=== PATIENT | male | born 1945 | race Caucasian/White ===

== ENCOUNTER 2017-01-11 09:30 | Outpatient (CLI) | payer MEDICARE | END 2017-01-11 09:31 | disposition home or self-care (01) | DX: E11.42 Type 2 diabetes mellitus with diabetic polyneuropathy (principal); I10 Essential (primary) hypertension; G47.33 Obstructive sleep apnea (adult) (pediatric); M54.5 Low back pain ==

== ENCOUNTER 2017-07-01 00:43 | Outpatient (CLI) | payer MEDICARE | END 2017-07-01 00:44 | disposition EMS.NT | LOC: EMS 00:43 | PROVIDERS: ATTEND Surgery | DX: Z03.89 Encounter for observation for other suspected diseases and conditions ruled out (principal); W18.30XA Fall on same level, unspecified, initial encounter; Y92.003 Bedroom of unspecified non-institutional (private) residence as the place of occurrence of the external cause ==

== ENCOUNTER 2017-08-15 10:22 | Outpatient (CLI) | payer MEDICARE ==
[2017-08-15 13:32] LABS: ALBUMIN/GLOBULIN RATIO 0.8 (1.0-2.2); BILIRUBIN,TOTAL 0.4 mg/dL (0.2-1.0); BUN - BLOOD UREA NITROGEN 29 mg/dL (6-20); CALCIUM 8.7 mg/dL (8.5-10.3); CARBON DIOXIDE - CO2 30 mmol/L (21-32); CHLORIDE 97 mmol/L (101-111); CHOL/HDL RATIO 2.6 (<5.0); CHOLESTEROL 143 mg/dL; CREATININE 0.9 mg/dL (0.6-1.2); GFR - MDRD 83 (>89); GLUCOSE 121 mg/dL (70-100); HDL CHOLESTEROL 55 mg/dL; LDL/HDL RATIO 1.2 (<3.6); POTASSIUM 4.5 mmol/L (3.5-5.0); SODIUM 137 mmol/L (135-145); TOTAL PROTEIN 7.7 g/dL (6.7-8.2); TRIGLYCERIDES 111 mg/dL; VLDL CHOLESTEROL 22 mg/dL
[2017-08-15 14:09] LABS: HEMOGLOBIN A1C 0.6 g/dL
== END 2017-08-15 10:23 | disposition home or self-care (01) ==
LOC: LAB.WCP 10:22
PROVIDERS: ATTEND Family Medicine
DX: K59.09 Other constipation (principal); M54.5 Low back pain; E78.5 Hyperlipidemia, unspecified
CPT/HCPCS: 36415; 80053; 80061; 82043; 83036

== ENCOUNTER 2017-08-17 08:00 | Outpatient (CLI) | payer MEDICARE | END 2017-08-17 08:01 | disposition home or self-care (01) | LOC: LAB.WCP 08:00 | PROVIDERS: ATTEND Family Medicine | DX: K59.09 Other constipation (principal); M54.5 Low back pain | CPT/HCPCS: 82043 ==

== ENCOUNTER 2018-03-28 08:00 | Outpatient (CLI) | payer MEDICARE ==
[2018-03-28 18:45] LABS: ALBUMIN 3.3 g/dL (3.2-5.5); ALBUMIN/GLOBULIN RATIO 0.7 (1.0-2.2); BILIRUBIN,TOTAL 0.6 mg/dL (0.2-1.0); CALCIUM 8.6 mg/dL (8.5-10.3); CREATININE 0.8 mg/dL (0.6-1.2); TOTAL PROTEIN 7.9 g/dL (6.7-8.2)
[2018-03-28 18:54] LABS: HB2 TOTAL 13.6 g/dL; HEMOGLOBIN A1C 0.55 g/dL; HEMOGLOBIN A1C % 5.9 % (4.6-6.2)
== END 2018-03-28 08:01 | disposition home or self-care (01) ==
LOC: LAB.WCP 08:00
PROVIDERS: ATTEND Family Medicine
DX: I89.0 Lymphedema, not elsewhere classified (principal); E11.42 Type 2 diabetes mellitus with diabetic polyneuropathy; Z79.891 Long term (current) use of opiate analgesic
CPT/HCPCS: 36415; 80053; 83036

== ENCOUNTER 2018-04-28 07:35 | Outpatient (CLI) | payer MEDICARE | END 2018-04-28 07:36 | disposition critical access hospital (66) | LOC: EMS 07:35 | PROVIDERS: ATTEND Surgery | DX: R53.1 Weakness (principal); R19.8 Other specified symptoms and signs involving the digestive system and abdomen | CPT/HCPCS: A0425; A0429 ==

== ENCOUNTER 2018-04-28 07:57 | Inpatient (IN) | payer MEDICARE ==
[2018-04-28] MEDS ORDERED: SODIUM CHLORIDE 0.9% 1,000 ML IV ONE ×2 (08:05)
--- NOTE | 2018-04-28 08:18 | ED Physician Documentation ---
History of Present Illness - Stated complaint Stated Complaint: WEAKNESS - Chief complaint Chief Complaint: General - History obtained from History obtained from: Patient, Family - History of Present Illness Timing: How many weeks ago (1) Pain level max: 0 Pain level now: 0 Improved by: nothing Worsened by: nothing - Additonal information Additional information: 73 year old male states that he has not eaten for the past week because of constipation. States more weak than usual today. States that he feels very constipated and hasn't taken his relistor this week. No abd pain. No fever. No chills. No vomiting. Review of Systems Ten Systems: 10 systems reviewed and negative Constitutional: denies: Fever, Chills Nose: denies: Rhinorrhea / runny nose, Congestion Respiratory: denies: Cough GI: denies: Nausea, Vomiting, Diarrhea Skin: denies: Rash Musculoskeletal: denies: Neck pain, Back pain Neurologic: denies: Focal weakness, Numbness, Headache PD PAST MEDICAL HISTORY - Past Medical History Cardiovascular: Hypertension Respiratory: Sleep apnea Endocrine/Autoimmune: Type 2 diabetes : Incontinence Musculoskeletal: Osteoarthritis, Chronic back pain - Past Surgical History Past Surgical History: Yes - Present Medications Home Medications: Ambulatory Orders Medication Instructions Recorded Confirmed Aspirin [Aspir 81] 81 mg PO DAILY 05/25/14 04/28/18 Carvedilol [Coreg] 3.125 mg PO BID 05/25/14 04/28/18 Cyclobenzaprine [Flexeril] 10 mg PO QPM 05/25/14 04/28/18 Docusate Sodium [Stool Softener] 1 tab PO DAILY 05/25/14 04/28/18 Hydrochlorothiazide 25 mg PO DAILY 05/25/14 04/28/18 Lisinopril 40 mg PO DAILY 05/25/14 04/28/18 Lovastatin 10 mg PO DAILY 05/25/14 04/28/18 Meloxicam 15 mg PO DAILY 05/25/14 04/28/18 Metformin HCl 250 mg PO DAILY 05/25/14 04/28/18 Morphine Sulfate [Morphine Sulfate 30 mg PO BID 05/25/14 04/28/18 Cr] Multivitamin [Multivitamins] 1 tab PO DAILY 05/25/14 04/28/18 [place]-3 Fatty Acids/Fish Oil 1 tab PO DAILY 05/25/14 04/28/18 [[place] 3 1,000 mg Softgel] Oxycodone HCl/Acetaminophen 1 tab PO QID PRN 05/25/14 04/28/18 [Endocet 5-325 Tablet] Polyethylene Glycol 3350 [Miralax] 17 gm PO BID PRN #1 bottle 05/25/14 04/28/18 Tamsulosin [Flomax] 0.4 mg PO DAILY #14 capsule 05/25/14 04/28/18 Urea 1 applic PO BID 05/25/14 04/28/18 Vitamin E 400 units PO DAILY 05/25/14 04/28/18 raNITIdine [Zantac] 150 mg PO BID 05/25/14 04/28/18 Methylnaltrexone [Relistor] 24 mg SUBQ PRN PRN 04/28/18 04/28/18 - Allergies Allergies/Adverse Reactions: Allergies Allergy/AdvReac Type Severity Reaction Status Date / Time codeine Allergy Mild Itching Verified 01/13/15 09:29 - Social History Does the pt smoke?: No Smoking Status: Former smoker Does the pt drink ETOH?: No - Immunizations Immunizations are current?: Yes PD ED PE NORMAL - Vitals Vital signs reviewed: Yes - General General: Alert and oriented X 3, No acute distress - HEENT HEENT: Moist mucous membranes - Neck Neck: Supple, no meningeal sign - Cardiac Cardiac: RRR - Respiratory Respiratory: No respiratory distress, Clear bilaterally - Abdomen Abdomen: Soft, Other (distended, dull to percussion throughout) - Derm Derm: Warm and dry - Extremities Extremities: Other (diffuse edema, chronic changes. ) - Neuro Neuro: Alert and oriented X 3 - Psych Psych: Normal mood, Normal affect Results - Vitals Vitals: Vital Signs - 24 hr 04/28/18 08:00 Temperature 36.2 C L Heart Rate 94 Respiratory 20 Rate Blood Pressure 129/56 L O2 Saturation 97 Oxygen O2 Source Room air - EKG (time done) 0812 Rate: Rate (enter#) (88) Rhythm: NSR [place]: Normal Intervals: RBBB, Other (LAFB) Ischemia: Normal ST segments Compare to prior EKG: Old EKG unavailable - Labs Labs: Laboratory Tests 04/28/18 04/28/18 04/28/18 08:25 08:25 08:25 WBC 7.4 RBC 4.46 L Hgb 13.0 L Hct 39.2 L MCV 87.9 MCH 29.3 MCHC 33.3 RDW 13.8 Plt Count 170 MPV 6.9 L Neut # (Auto) 6.0 Lymph # (Auto) 0.5 L [place] # (Auto) 0.8 Eos # (Auto) 0.1 Baso # (Auto) 0.1 Absolute Nucleated RBC 0.00 Nucleated RBC % 0.0 Sodium 122 L Potassium 4.3 Chloride 87 L Carbon Dioxide 18 L Anion Gap 17.0 H BUN 62 H Creatinine 4.3 H Estimated GFR (MDRD) 14 L Glucose 94 Glycated Hemoglobin Estim Average Glucose Calcium 7.8 L Total Bilirubin 1.2 H AST 23 ALT 18 Alkaline Phosphatase 81 Total Creatine Kinase Troponin I < 0.04 Total Protein 8.1 Albumin 3.3 Globulin 4.8 H Albumin/Globulin Ratio 0.7 L Lipase 34 04/28/18 04/28/18 08:25 08:25 WBC RBC Hgb Hct MCV MCH MCHC RDW Plt Count MPV Neut # (Auto) Lymph # (Auto) Lander # (Auto) Eos # (Auto) Baso # (Auto) Absolute Nucleated RBC Nucleated RBC % Sodium Potassium Chloride Carbon Dioxide Anion Gap BUN Creatinine Estimated GFR (MDRD) Glucose Glycated Hemoglobin 6.1 Estim Average Glucose 128 H Calcium Total Bilirubin AST ALT Alkaline Phosphatase Total Creatine Kinase 192 Troponin I Total Protein Albumin Globulin Albumin/Globulin Ratio Lipase PD MEDICAL DECISION MAKING - ED course Complexity details: reviewed old records, reviewed results, re-evaluated patient , considered differential, d/w patient, d/w family, d/w recruiting and selection consultant ED course: Patient is a 73-year-old male who presents to the emergency department with acute renal failure and hyponatremia. Also with constipation. Given oral Narcan. Given IV fluids. Will admit the patient for further care. Discussed the case with Dr. Garcia, hospitalist who accepts. This document was made in part using voice recognition software. While efforts are made to proofread this document, sound alike and grammatical errors may occur. - Sepsis Event Vital Signs: Vital Signs - 24 hr 04/28/18 08:00 Temperature 36.2 C L Heart Rate 94 Respiratory 20 Rate Blood Pressure 129/56 L O2 Saturation 97 Oxygen O2 Source Room air Departure - Departure Disposition: [facility] DC/Xfer Clinical Impression: Hyponatremia Acute renal failure Qualifiers: Acute renal failure type: unspecified Qualified Code(s): N17.9 - Acute kidney failure, unspecified Constipated Qualifiers: Constipation type: unspecified constipation type Qualified Code(s): K59.00 - Constipation, unspecified Condition: Stable Discharge Date/Time: 04/28/18 10:36
[2018-04-28] MEDS ORDERED: NALOXONE 0.4 MG/ML VIAL IVP STA (08:24)
[2018-04-28 08:33] LABS: BASOPHILS # (AUTO) 0.1 10^3/uL (0.0-0.1); BASOPHILS % (AUTO) 0.8 %; EOSINOPHILS # (AUTO) 0.1 10^3/uL (0.0-0.7); EOSINOPHILS % (AUTO) 0.9 %; LYMPHOCYTES # (AUTO) 0.5 10^3/uL (1.5-3.5); LYMPHOCYTES % (AUTO) 6.4 %; MEAN CORPUSCULAR HEMOGLOBIN 29.3 pg (27.0-31.0); MEAN CORPUSCULAR HGB CONC 33.3 g/dL (32.0-36.0); MEAN CORPUSCULAR VOLUME 87.9 fL (80.0-94.0); MEAN PLATELET VOLUME 6.9 fL (7.4-11.4); MONOCYTES # (AUTO) 0.8 10^3/uL (0.0-1.0); MONOCYTES % (AUTO) 10.5 %; NEUTROPHILS % (AUTO) 81.4 %; PLT - PLATELET COUNT 170 10^3/uL (130-450); RED BLOOD COUNT 4.46 10^6/uL (4.70-6.10); RED CELL DISTRIBUTION WIDTH 13.8 % (12.0-15.0); WHITE BLOOD COUNT 7.4 x10^3/uL (4.8-10.8)
[2018-04-28 08:46] LABS: ALBUMIN 3.3 g/dL (3.2-5.5); ALBUMIN/GLOBULIN RATIO 0.7 (1.0-2.2); BILIRUBIN,TOTAL 1.2 mg/dL (0.2-1.0); CALCIUM 7.8 mg/dL (8.5-10.3); CREATININE 4.3 mg/dL (0.6-1.2); TOTAL PROTEIN 8.1 g/dL (6.7-8.2)
[2018-04-28] MEDS ORDERED: NALOXONE 0.4 MG/1 ML 10 ML MDV IVP STA (08:53)
[2018-04-28] MEDS ORDERED: ONDANSETRON 4 MG/2 ML VIAL IVP PRN ×2 (09:22→10:47)
[2018-04-28] MEDS ORDERED: ONDANSETRON ODT 4 MG TABLET TL PRN (09:22)
[2018-04-28] MEDS ORDERED: SODIUM CHLORIDE FLUSH 0.9% 10 ML SYRINGE IVP PRN ×2 (09:22→10:47)
[2018-04-28] MEDS ORDERED: oxyCODONE 5 MG TABLET PO PRN (09:22)
[2018-04-28] MEDS ORDERED: ACETAMINOPHEN 325 MG TABLET PO PRN ×2 (09:22→10:47)
[2018-04-28] MEDS ORDERED: SODIUM CHLORIDE 0.9% 1,000 ML IV SCH (10:00)
[2018-04-28] MEDS ORDERED: ENOXAPARIN 40 MG/0.4 ML SYRINGE SUBQ SCH (10:00)
[2018-04-28] MEDS ORDERED: SODIUM CHLORIDE FLUSH 0.9% 10 ML SYRINGE ONE (10:50)
--- NOTE | 2018-04-28 10:51 | HISTORY & PHYSICAL EXAMINATION ---
Chief Complaint - Chief Complaint Chief Complaint: dizziness and weakness History of Present Illness - Admitted From Admitted From:: ER - History Obtained From History obtained from: pt - History of Present Illness HPI Comment/Other: Mr. Abrams is a 73-year-old male with a PMH significant for mortality obese, chronic back pain, chronic opioid-induced constipation, chronic bilateral low extremities of psoriasis, HTN, DM2, sleep apnea, osteroarthritis, who present ER complaints of dizziness and weakness. Pt states that he has not eaten much for the past week because of constipation. He state he usually drink 2 liters of water but for last week, he only drunk one liter per day because he think he is constipated, and should not eat and drink much even at summer. He States he is more dizziness and more weak than usual today. He denies abdominal pain, nausea, vomiting, diarrhea. He report he has chronic psoriasis and follows up with his dean. He denies chest pain, shortness of breath, fever, chill , cough. His creatinine is 4.3 today from 0.8 one month ago. History - Past Medical History Cardiovascular: reports: Hypertension Respiratory: reports: Sleep apnea Endocrine/Autoimmune: reports: Type 2 diabetes : reports: Incontinence Musculoskeletal: reports: Osteoarthritis, Chronic back pain MRSA Hx?: No - Family & Social History Family History: Mother: (father from accident fall), Cancer, Father: Family History Comment/Other: he is living alone at [facility]. He has two daughters, and he had two brother and sisters. Living arrangement: At home Living Situation: Alone Social History Notes: pt denies cigarette smoking, alcohol and drug abuse. - POLST POLST Status: Full Code Meds/Allgy - Home Medications Home Medications: Ambulatory Orders Medication Instructions Recorded Confirmed Aspirin [Aspir 81] 81 mg PO DAILY 05/25/14 04/28/18 Carvedilol [Coreg] 3.125 mg PO BID 05/25/14 04/28/18 Cyclobenzaprine [Flexeril] 10 mg PO QPM 05/25/14 04/28/18 Docusate Sodium [Stool Softener] 1 tab PO DAILY 05/25/14 04/28/18 Hydrochlorothiazide 25 mg PO DAILY 05/25/14 04/28/18 Lisinopril 40 mg PO DAILY 05/25/14 04/28/18 Lovastatin 10 mg PO DAILY 05/25/14 04/28/18 Meloxicam 15 mg PO DAILY 05/25/14 04/28/18 Metformin HCl 250 mg PO DAILY 05/25/14 04/28/18 Morphine Sulfate [Morphine Sulfate 30 mg PO BID 05/25/14 04/28/18 Cr] Multivitamin [Multivitamins] 1 tab PO DAILY 05/25/14 04/28/18 [place]-3 Fatty Acids/Fish Oil 1 tab PO DAILY 05/25/14 04/28/18 [[place] 3 1,000 mg Softgel] Oxycodone HCl/Acetaminophen 1 tab PO QID PRN 05/25/14 04/28/18 [Endocet 5-325 Tablet] Polyethylene Glycol 3350 [Miralax] 17 gm PO BID PRN #1 bottle 05/25/14 04/28/18 Tamsulosin [Flomax] 0.4 mg PO DAILY #14 capsule 05/25/14 04/28/18 Urea 1 applic PO BID 05/25/14 04/28/18 Vitamin E 400 units PO DAILY 05/25/14 04/28/18 raNITIdine [Zantac] 150 mg PO BID 05/25/14 04/28/18 Methylnaltrexone [Relistor] 24 mg SUBQ PRN PRN 04/28/18 04/28/18 - Allergies Allergies/Adverse Reactions: Allergies Allergy/AdvReac Type Severity Reaction Status Date / Time codeine Allergy Mild Itching Verified 01/13/15 09:29 Review of Systems - Constitutional Constitutional: reports: Weakness. denies: Fatigue, Fever, Chills, Malaise, Poor appetite, Diaphoresis, Night sweats - Eyes Eyes: denies: Pain, Irritation, Amaurosis, Blurred vision, Spots in vision, Field loss, Vision loss, Dipolpia - Ears, Nose & Throat Ears, Nose & Throat: denies: Ear pain, Hearing loss, Hearing aids, Tinnitus, Vertigo, Nasal pain, Nasal discharge, Nosebleeds, Nasal obstruction, Nasal congestion, Postnasal drainage, Dentures, Sore throat, Hoarseness, Mouth lesions , Bleeding gums, Dental decay - Cardiovascular Cariovascular: denies: Irregular heart rate, Palpitations, Chest pain, Edema, Lightheadedness, Syncope, Exertional dyspnea, Decr. exercise tolerance - Respiratory Respiratory: denies: Cough, Sputum production, Wheezing, Snoring, Hemoptysis, Orthopnea, SOB at rest - Gastrointestinal Gastrointestinal: denies: Abdominal pain, Abdominal distention, Constipation, Diarrhea, Change in bowel habits, Rectal bleeding, Black stools, Bloody stools, Nausea, Vomiting, Bile emesis, Robert blood emesis, Coffee grounds emesis, Reflux /heartburn - Genitourinary Genitourinary: denies: Dysuria, Frequency, Urgency, Hematuria, Incontinence, Flank pain, Nocturia, Urethral discharge - Musculoskeletal Musculoskeletal: reports: Back pain. denies: Muscle pain, Muscle aches, Stiffness, Limited range of motion, Muscle weakness, Gout, Joint pain - Integumentary Integumentary: reports: Rash, Lesions. denies: Pruritis, Dryness, Lumps, Acne, Pigment changes, Nail changes - Neurological Neurological: reports: General weakness. denies: Focal weakness, Headache, Dizziness, Numbness, Memory problems, Pre-existing deficit, Abnormal gait, Seizures, Incoordination, Slurred speech - Psychiatric Psychiatric: denies: Depression, Anxiety, Suicidal, Delusions, Hallucinations, Homicidal - Endocrine Endocrine: denies: Polyuria, Polydypsia, Polyphagia, Intolerance to cold - Hematologic/Lymphatic Hematologic/Lymphatic: denies: Anemia, Bruising, Petechiae, Blood clots, Lymphadenopathy, Bleeding tendencies Exam - Vital Signs Reviewed Vital Signs: Yes Vital Signs: Vital Signs x48h Temp Pulse Resp BP Pulse Ox 04/28/18 10:04 103 H 20 134/89 H 98 04/28/18 08:00 36.2 C L 94 20 129/56 L 97 - Physical Exam General Appearance: positive: No acute distress, Alert. negative: Lethargic Eyes Bilateral: positive: Normal inspection, PERRL, No lid inflammation, Conjunctivae nml ENT: positive: ENT inspection nml, Pharynx nml, No signs of dehydration. negative: Purulent nasal drainage, Pharyngeal erythema, Oral lesions Neck: positive: Nml inspection, Thyroid nml, No JVD, Trachea midline. negative : Thyromegaly, Lymphadenopathy (R), Lymphadenopathy (L), Stiff neck, Carotid bruit, Swelling/bruising, Tracheal deviation Respiratory: positive: Chest non-tender, No respiratory distress, Breath sounds nml. negative: Wheezes, Rales, Rhonchi Cardiovascular: positive: Regular rate & rhythm, Systolic murmur, Diastolic murmur. negative: Irregularly irregular, Extrasystoles, Tachycardia, Bradycardia, JVD present Peripheral Pulses: positive: 2+ Abdomen: positive: Non-tender, No organomegaly, No distention, Other (reduced bowel sounds). negative: Tenderness, Guarding, Rebound Back: positive: Nml inspection. negative: CVA tenderness (R), CVA tenderness (L ) Skin: positive: Warm, Dry, Skin rash. negative: Cyanosis, Diaphoresis, Pallor Extremities: positive: Full ROM. negative: Calf tenderness, Joint swelling, Rosie's sign/cords Neurologic/Psychiatric: positive: Oriented x3, Sensation nml, Mood/affect nml. negative: Weakness, Sensory loss, Facial droop, Slurred/abnml speech, Depressed mood/affect Conclusion/Plan - Problem List (1) Acute renal failure Conclusion/Plan: pt state he significantly reduced his drinking of water and diet because he continue to have constipation. Pt's creatinine 0.8 one month ago, now it 4.3 IVF of NS 100, daily lab monitor renal function hold nephrotoxin Qualifiers: Acute renal failure type: unspecified Qualified Code(s): N17.9 - Acute kidney failure, unspecified (2) Constipation Conclusion/Plan: pt has chronic constipation problem, seems caused by chronic opioids usage for his chronic back pain. pt denies abdominal pain, N/V/D start with bowel protocol Mag citrate as needed Xray of abdomen Qualifiers: Constipation type: unspecified constipation type Qualified Code(s): K59.00 - Constipation, unspecified (3) Diabetes Conclusion/Plan: pt took Metformin at home. Hold Metformin for renal failure start slide scale, ACHS hypoglycemia protocol (4) Hyponatremia Conclusion/Plan: it seem from hypovolum and hyponatremia. Na 122 today Hold HCTZ start IVF with NS at 100 cc/h daily lab monitor (5) HTN (hypertension) Conclusion/Plan: stable, start home meds Coreg Hold HCTZ and Lisinopril PRN colinidine (6) Chronic back pain Conclusion/Plan: pt has opioid-caused constipation hold pain meds now until constipation resolved. (7) Hx of psoriasis Conclusion/Plan: hold the home meds Methelnelthrxone now for renal failure continue follow up pt's dean (8) Murmur, heart Conclusion/Plan: pt present bilateral systolic and diastolic murmur ECHO, will follow up on tele and vital monitor (9) DVT prophylaxis Conclusion/Plan: heparin, no SCD (10) Full code status Conclusion/Plan: pt request full code - Lab Results Fish Bones: 04/28/18 08:25 04/28/18 08:25 Core Measures - Anticipated LOS I expect patient to be DC'd or transferred within 96 hours.: Yes - DVT/VTE - Prophylaxis VTE/DVT Device ordered at admit?: No Not Ordered - Medical Reason: Contraindicated VTE/DVT Prophylaxis med ordered at admit?: Yes
[2018-04-28 11:16] LABS: HB2 TOTAL 14.1 g/dL; HEMOGLOBIN A1C 0.61 g/dL; HEMOGLOBIN A1C % 6.1 % (4.6-6.2)
[2018-04-28] MEDS: CARVEDILOL 3.125 MG TABLET PO SCH ×2 (11:26→20:37)
[2018-04-28] MEDS: ATORVASTATIN 10 MG TABLET PO SCH ×2 (11:26→20:40)
[2018-04-28] MEDS: SODIUM CHLORIDE 0.9% 1,000 ML IV SCH ×2 (11:26→20:50)
[2018-04-28] MEDS: INSULIN ASPART 300 UNIT/3 ML PEN SUBQ SCH ×3 (11:59→20:41)
[2018-04-28] MEDS ORDERED: ENOXAPARIN 30 MG/0.3 ML SYRINGE SUBQ SCH (12:00)
[2018-04-28] MEDS ORDERED: MAGNESIUM CITRATE 296 ML BOTTLE PO PRN (15:25)
[2018-04-28] MEDS ORDERED: cloNIDine 0.1 MG TABLET PO PRN ×2 (16:14→16:16)
[2018-04-28] MEDS: HEPARIN 5,000 UNIT/ML VIAL SUBQ SCH ×2 (16:41→22:27)
[2018-04-28] MEDS: SENNA 8.6 MG TABLET PO SCH (16:42)
[2018-04-28] MEDS: SODIUM CHLORIDE FLUSH 0.9% 10 ML SYRINGE IVP SCH (16:45)
[2018-04-28] MEDS ORDERED: MAGNESIUM HYDROXIDE 2,400 MG/30 ML UDC PO ONE (17:00)
[2018-04-28] MEDS ORDERED: SODIUM CHLORIDE FLUSH 0.9% 10 ML SYRINGE IVP SCH (17:00)
--- NOTE | 2018-04-28 18:13 | Ultrasound Report ---
Procedure Date: 04/28/2018 Accession Number: [id number] / [id number] Procedure: US - Retroperitoneal CPT Code: FULL RESULT: EXAM: RENAL ULTRASOUND EXAM DATE: 04/28/2018 05:26 PM. CLINICAL HISTORY: New acute renal failure. COMPARISON: 01/14/2015. TECHNIQUE: Real-time scanning was performed with static images obtained. FINDINGS: Right Kidney: 13.3 x 7.2 x 7.7 cm. Normal echotexture with no stones, contour-deforming masses, or hydronephrosis. Left Kidney: 13.0 x 7.7 x 6.4 cm. Normal echotexture with no stones, contour-deforming masses, or hydronephrosis. Bladder: Neither ureteral jet is seen. The prevoid bladder volume was 1478 mL. The postvoid bladder volume was not obtained. Patient was unable to void. Significant limitations due to body habitus and limited mobility. Other: Echogenic liver parenchyma compatible with fatty infiltration. Apparent large gallstone. IMPRESSION: 1. No renal mass, stones or hydronephrosis. 2. Significant bladder volume of 1478 mL. Patient was unable to void. Neither ureteral jets are seen. 3. Significant limitations due to body habitus and suboptimal mobility. 4. Fatty liver. Apparent gallstones. RADIA
--- NOTE | 2018-04-28 20:36 | XRAY Report ---
Procedure Date: 04/28/2018 Accession Number: [id number] / [id number] Procedure: XR - Abdomen 1 View X-Ray CPT Code: 89198 FULL RESULT: EXAM: ABDOMEN RADIOGRAPHY EXAM DATE: 04/28/2018 08:00 PM. CLINICAL HISTORY: Reduced bowel sound. Constipation. Any SBO? COMPARISON: None. TECHNIQUE: 1 view. FINDINGS: Bowel Gas Pattern: Within normal limits. No dilated loops. Other: Catheter projects over the pelvis. IMPRESSION: Nonobstructive bowel gas pattern. RADIA
[2018-04-28] MEDS: MORPHINE ER 15 MG TABLET PO SCH (20:40)
[2018-04-28] MEDS: ALPHA HYDROXY ACIDS TOP SCH (20:41)
[2018-04-28] MEDS: UREA TOP SCH (20:41)
[2018-04-28] MEDS ORDERED: CYCLOBENZAPRINE 10 MG TABLET PO SCH ×2 (21:00)
[2018-04-28] MEDS ORDERED: MORPHINE SULFATE 30 MG PO SCH (21:00)
[2018-04-28] MEDS ORDERED: CARVEDILOL 3.125 MG TABLET PO SCH ×3 (21:00)
[2018-04-28] MEDS ORDERED: UREA PO SCH (21:00)
[2018-04-28 22:35] LABS: MUDS CUTOFF CONCENTRATIONS CUTOFF CONC BELOW:
[2018-04-28 22:36] LABS: AMPHETAMINE SCREEN,URINE NEGATIVE (NEGATIVE); BENZODIAZEPINES SCREEN, URINE NEGATIVE (NEGATIVE); COCAINE SCREEN URINE NEGATIVE (NEGATIVE); METHADONE SCREEN, URINE NEGATIVE (NEGATIVE); METHAMPHETAMINES SCREEN, URINE NEGATIVE (NEGATIVE); OPIATE SCREEN, URINE POSITIVE (NEGATIVE); OXYCODONE SCREEN, URINE POSITIVE (NEGATIVE); PROPOXYPHENE SCREEN, URINE NEGATIVE (NEGATIVE); TRICYCLIC ANTIDEPRESSANT,URINE NEGATIVE (NEGATIVE)
[2018-04-29] MEDS: SENNA 8.6 MG TABLET PO SCH ×3 (01:13→11:01)
[2018-04-29] MEDS: SODIUM CHLORIDE FLUSH 0.9% 10 ML SYRINGE IVP SCH ×4 (01:15→18:21)
[2018-04-29] MEDS: oxyCODONE 5 MG TABLET PO PRN ×3 (05:40→18:21)
[2018-04-29 06:14] LABS: BASOPHILS % (AUTO) 0.3 %; EOSINOPHILS # (AUTO) 0.1 10^3/uL (0.0-0.7); EOSINOPHILS % (AUTO) 0.9 %; HGB - HEMOGLOBIN 12.1 g/dL (14.0-18.0); LYMPHOCYTES # (AUTO) 0.4 10^3/uL (1.5-3.5); LYMPHOCYTES % (AUTO) 7.1 %; MEAN CORPUSCULAR HEMOGLOBIN 29.9 pg (27.0-31.0); MEAN CORPUSCULAR HGB CONC 33.7 g/dL (32.0-36.0); MEAN CORPUSCULAR VOLUME 88.6 fL (80.0-94.0); MEAN PLATELET VOLUME 7.4 fL (7.4-11.4); MONOCYTES # (AUTO) 0.8 10^3/uL (0.0-1.0); MONOCYTES % (AUTO) 12.3 %; NEUTROPHILS % (AUTO) 79.4 %; PLT - PLATELET COUNT 152 10^3/uL (130-450); RED BLOOD COUNT 4.05 10^6/uL (4.70-6.10); RED CELL DISTRIBUTION WIDTH 14.1 % (12.0-15.0); WHITE BLOOD COUNT 6.3 x10^3/uL (4.8-10.8)
[2018-04-29 06:24] LABS: ALBUMIN 2.9 g/dL (3.2-5.5); ALBUMIN/GLOBULIN RATIO 0.8 (1.0-2.2); CALCIUM 7.5 mg/dL (8.5-10.3); CREATININE 4.7 mg/dL (0.6-1.2); MAGNESIUM 3.2 mg/dL (1.7-2.8); PHOSPHORUS 8.3 mg/dL (2.5-4.6); TOTAL PROTEIN 6.7 g/dL (6.7-8.2)
[2018-04-29] MEDS: SODIUM CHLORIDE 0.9% 1,000 ML IV SCH ×2 (06:54→16:50)
[2018-04-29] MEDS ORDERED: CALCIUM CARBONATE CHEW 500 MG TABLET PO PRN (07:35)
[2018-04-29] MEDS: INSULIN ASPART 300 UNIT/3 ML PEN SUBQ SCH ×3 (07:59→16:50)
[2018-04-29] MEDS ORDERED: MULTIVITAMIN TABLET PO SCH (08:00)
[2018-04-29] MEDS ORDERED: FAMOTIDINE 20 MG TABLET PO SCH (09:00)
[2018-04-29] MEDS ORDERED: POLYETHYLENE GLYCOL 3350 17 GM PACKET PO SCH ×2 (09:00)
[2018-04-29] MEDS ORDERED: LOVASTATIN 10 MG PO SCH ×2 (09:00)
[2018-04-29] MEDS ORDERED: ASPIRIN CHEW 81 MG TABLET PO SCH (09:00)
[2018-04-29] MEDS ORDERED: NON FORMULARY MED (Multivitamin [Multivitamins] 1 TAB) PO SCH ×2 (09:00)
[2018-04-29] MEDS ORDERED: LACTULOSE 10 GM /15 ML UDC PO SCH ×2 (09:00)
[2018-04-29] MEDS ORDERED: TAMSULOSIN 0.4 MG CAPSULE PO SCH ×3 (09:00)
[2018-04-29] MEDS: ONDANSETRON ODT 4 MG TABLET TL PRN ×2 (09:03→14:44)
[2018-04-29] MEDS: CARVEDILOL 3.125 MG TABLET PO SCH (09:04)
[2018-04-29] MEDS: MORPHINE ER 15 MG TABLET PO SCH (09:04)
[2018-04-29] MEDS: HEPARIN 5,000 UNIT/ML VIAL SUBQ SCH (09:05)
[2018-04-29] MEDS: UREA TOP SCH (09:16)
[2018-04-29] MEDS: ALPHA HYDROXY ACIDS TOP SCH (09:16)
--- NOTE | 2018-04-29 15:38 | DISCHARGE SUMMARY ---
Discharge Summary Discharge Date: 04/29/18 Discharging Provider: BOLAÑOS Primary Care Provider: Dr. Hamilton Condition at Discharge: Poor Discharge Disposition: 02 Transfer Acute Care Hosp [facility] - DIAGNOSES Admission Diagnoses: (1) Acute renal failure (2) Constipation (3) Diabetes (4) Hyponatremia (5) HTN (hypertension) (6) Chronic back pain (7) Hx of psoriasis (8) Murmur, heart Discharge Diagnoses with Status of Each Condition: (1) Acute renal failure pt does not response to hydration treatment. I called Dr. Blackwell, fire sprinkler service technician, he recommend to transfer pt to [facility] for advance care. I called [facility]. The hospitalist team Dr. Kenney accepted pt, Dr. Blackwell will consult to pt. (2) chronic Constipation KUB reveals no SBO, pt did not eat much, no bowel movement (3) Diabetes stable (4) Hyponatremia improved, Na 126 today (5) HTN (hypertension) stable (6) Chronic back pain better (7) Hx of psoriasis stable (8) Murmur, heart ECHO reveals EF>75% - HPI History of Present Illness: Mr. Abrams is a 73-year-old male with a PMH significant for mortality obese, chronic back pain, chronic opioid-induced constipation, chronic bilateral low extremities of psoriasis, HTN, DM2, sleep apnea, osteroarthritis, who present ER complaints of dizziness and weakness. Pt states that he has not eaten much for the past week because of constipation. He state he usually drink 2 liters of water but for last week, he only drunk one liter per day because he think he is constipated, and should not eat and drink much even at summer. He States he is more dizziness and more weak than usual today. He denies abdominal pain, nausea, vomiting, diarrhea. He report he has chronic psoriasis and follows up with his parts counterperson. He denies chest pain, shortness of breath, fever, chill , cough. His creatinine is 4.3 today from 0.8 one month ago. - ALLERGIES Allergies/Adverse Reactions: Allergies Allergy/AdvReac Type Severity Reaction Status Date / Time codeine Allergy Mild Itching Verified 01/13/15 09:29 - MEDICATIONS Home Medications: Ambulatory Orders Medication Instructions Recorded Confirmed Aspirin [Aspir 81] 81 mg PO DAILY 05/25/14 04/28/18 Carvedilol [Coreg] 3.125 mg PO BID 05/25/14 04/28/18 Cyclobenzaprine [Flexeril] 10 mg PO QPM 05/25/14 04/28/18 Docusate Sodium [Stool Softener] 1 tab PO DAILY 05/25/14 04/28/18 Hydrochlorothiazide 25 mg PO DAILY 05/25/14 04/28/18 Lisinopril 40 mg PO DAILY 05/25/14 04/28/18 Lovastatin 10 mg PO DAILY 05/25/14 04/28/18 Meloxicam 15 mg PO DAILY 05/25/14 04/28/18 Metformin HCl 250 mg PO DAILY 05/25/14 04/28/18 Morphine Sulfate [Morphine Sulfate 30 mg PO BID 05/25/14 04/28/18 Cr] Multivitamin [Multivitamins] 1 tab PO DAILY 05/25/14 04/28/18 [place]-3 Fatty Acids/Fish Oil 1 tab PO DAILY 05/25/14 04/28/18 [[place] 3 1,000 mg Softgel] Oxycodone HCl/Acetaminophen 1 tab PO QID PRN 05/25/14 04/28/18 [Endocet 5-325 Tablet] Polyethylene Glycol 3350 [Miralax] 17 gm PO BID PRN #1 bottle 05/25/14 04/28/18 Tamsulosin [Flomax] 0.4 mg PO DAILY #14 capsule 05/25/14 04/28/18 Urea 1 applic PO BID 05/25/14 04/28/18 Vitamin E 400 units PO DAILY 05/25/14 04/28/18 raNITIdine [Zantac] 150 mg PO BID 05/25/14 04/28/18 Methylnaltrexone [Relistor] 24 mg SUBQ PRN PRN 04/28/18 04/28/18 - PHYSICAL EXAM AT DISCHARGE General Appearance: positive: No acute distress, Alert. negative: Lethargic Eyes Bilateral: positive: Normal inspection, PERRL, No lid inflammation, Conjunctivae nml ENT: positive: ENT inspection nml, Pharynx nml, No signs of dehydration. negative: Purulent nasal drainage, Pharyngeal erythema, Oral lesions Neck: positive: Nml inspection, Thyroid nml, No JVD, Trachea midline. negative : Thyromegaly, Lymphadenopathy (R), Lymphadenopathy (L), Stiff neck, Swelling/ bruising, Tracheal deviation Respiratory: positive: Chest non-tender, No respiratory distress, Breath sounds nml. negative: Wheezes, Rales, Rhonchi Cardiovascular: positive: Regular rate & rhythm, No murmur, No gallop. negative : Irregularly irregular, Extrasystoles, Tachycardia, Bradycardia, JVD present, Systolic murmur, Diastolic murmur Peripheral Pulses: positive: 2+ Abdomen: positive: Non-tender, No organomegaly, Nml bowel sounds, No distention. negative: Tenderness, Guarding, Rebound Back: positive: Nml inspection. negative: CVA tenderness (R), CVA tenderness (L ) Skin: positive: Warm, Dry. negative: Cyanosis, Diaphoresis, Pallor Extremities: positive: Non-tender, Full ROM. negative: Calf tenderness, Joint swelling, Rosie's sign/cords Neurologic/Psychiatric: positive: Oriented x3, Motor nml, Sensation nml, Mood/ affect nml. negative: Weakness, Sensory loss, Facial droop, Slurred/abnml speech, Depressed mood/affect - LABS Result Diagrams: 04/29/18 05:17 04/29/18 05:17 - FOLLOW UP Follow Up: transfer to [facility] for advance care - TIME SPENT Time Spent in Discharge (Minutes): 45
[2018-04-29 18:27] VITALS: BP 101/77
== END 2018-04-29 18:50 | disposition short-term general hospital (02) | DRG 683 ==
LOC: ED 07:57 → MS2 09:22 → ED 10:36
PROVIDERS: ADMIT Specialist; ATTEND Nurse Practitioner Gerontology
DX: N17.9 Acute kidney failure, unspecified (principal); Z68.44 Body mass index [BMI] 60.0-69.9, adult; K59.00 Constipation, unspecified; E87.1 Hypo-osmolality and hyponatremia; I38 Endocarditis, valve unspecified; E86.1 Hypovolemia; E66.01 Morbid (severe) obesity due to excess calories; Z87.891 Personal history of nicotine dependence; M54.9 Dorsalgia, unspecified; G89.29 Other chronic pain; K59.03 Drug induced constipation; T40.2X5A Adverse effect of other opioids, initial encounter; I10 Essential (primary) hypertension; E11.9 Type 2 diabetes mellitus without complications; G47.30 Sleep apnea, unspecified; L40.9 Psoriasis, unspecified; Z79.82 Long term (current) use of aspirin; Z79.899 Other long term (current) drug therapy; Z79.84 Long term (current) use of oral hypoglycemic drugs
CPT/HCPCS: 36415; 74018; 76770; 80053; 80306; 82550; 83036; 83690; 83735; 84100; 84484; 85025; 93005; 93306; 96361; 96374; 99284; 99285